=== PATIENT | female | born 1960 | race Caucasian/White ===

== ENCOUNTER 2017-01-09 23:33 | Inpatient (IN) | payer BC ==
[~2017-01-09] VITALS: Ht 170.2 cm; Wt 117.5 kg
[2017-01-09 23:48] VITALS: BP_SYST 206
[2017-01-10] VITALS (20 sets, daily range): BP systolic 108–174
--- NOTE | 2017-01-10 00:04 | NUR ---
Patient to ER bed 3 to gown for evaluation. Side rails up. Report given to OBED Bell.
--- NOTE | 2017-01-10 00:10 | NUR ---
Patient arrived to ED a/o x 4 with c/o generalized anxiety x 2 weeks. Patient states anxiety like symptoms have gradually increased prompting ED visit. Patient appears in acute distress. No increased work of breathing at this time. Patient states she becomes SOB upon talking. Upon assessment patient has HR of 117 and BP of 189/138. No hx of anxiety. Will continue to monitor.
--- NOTE | 2017-01-10 00:25 | NUR ---
ED MD Chilel at bedside for medical evaluation.
[2017-01-10] MEDS ORDERED: NACL 0.9% 1,000 ML IV ONE ×2 (00:45→03:30)
--- NOTE | 2017-01-10 00:57 | NUR ---
20 gauge angiocath placed to right AC. Use of asceptic technique. Opsite placed over site. Blood return noted. Blood for lab drawn from site. Flushed with 10 cc of normal saline. No evidence of infiltration noted. Patient tolerated well.
[2017-01-10] MEDS ORDERED: LORazepam 2 MG/ML VIAL (FOR ER USE) IVP ONE (01:00)
[2017-01-10] MEDS ORDERED: KETOROLAC TROMETHAMINE 30 MG VIAL IVP ONE (01:00)
[2017-01-10] MEDS ORDERED: ASPIRIN 81 MG TAB.CHEW PO ONE (01:00)
--- NOTE | 2017-01-10 01:07 | NUR ---
Medicated per MD orders. IVF infusing with no s/s of infiltration at this time.
--- NOTE | 2017-01-10 01:20 | NUR ---
Radiology at bedside.
[2017-01-10 01:25] LABS: BASOPHILS # (AUTO) 0.1 K/uL (0.0-0.2); BASOPHILS % (AUTO) 0.9 % (0.0-2.0); EOSINOPHILS % (AUTO) 0.1 % (0.0-4.0); HEMOGLOBIN 16.9 g/dL (12.0-16.0); LYMPHOCYTES # (AUTO) 0.9 K/uL (1.0-5.5); LYMPHOCYTES % (AUTO) 8.3 % (20.5-51.5); MEAN CORPUSCULAR HEMOGLOBIN 29 pg (27-31); MEAN CORPUSCULAR HGB CONC 33 % (32-36); MEAN CORPUSCULAR VOLUME 86 fL (79.0-98.0); MONOCYTES # (AUTO) 0.6 K/uL (0.0-1.0); MONOCYTES % (AUTO) 5.6 % (1.7-9.3); NEUTROPHILS # (AUTO) 9.2 K/uL (1.8-7.7); NEUTROPHILS % (AUTO) 85.1 % (40.0-70.0); PLATELET COUNT (AUTO) 324 K/uL (130-430); RED BLOOD CELL COUNT(AUTO) 5.91 MIL/uL (4.2-6.2); RED CELL DISTRIBUTION WIDTH 11.9 % (9.0-15.0); WHITE BLOOD COUNT (AUTO) 10.8 K/uL (4.8-10.8)
[2017-01-10] MEDS ORDERED: hydrALAZINE HCL 20 MG/ML VIAL IVP ONE ×2 (01:30→02:45)
[2017-01-10 01:34] LABS: ANION GAP 23 (5-15); CALCIUM 9.5 mg/dL (8.4-11.0); CHLORIDE 98 mmol/L (98-107); CREATININE 0.96 mg/dL (0.55-1.30); GLUCOSE 281 mg/dL (70-99); POTASSIUM 3.4 mmol/L (3.5-5.1); SODIUM SERUM 137 mmol/L (136-145); UREA NITROGEN, BLOOD 9 mg/dL (8-21)
--- NOTE | 2017-01-10 01:40 | NUR ---
Radiology at bedside for CXR.
[2017-01-10 01:45] LABS: ALANINE AMINOTRANSFERASE 184 U/L (12-78); ALBUMIN 4.3 g/dL (3.4-4.8); ASPARTATE AMINOTRANSFERASE 79 U/L (10-37); TOTAL BILIRUBIN 0.7 mg/dL (0.0-1.0)
--- NOTE | 2017-01-10 01:46 | NUR ---
Patient reports pain 0/10 30 minutes after administration of 30mg Tordal IVP. No adverse reactions noted. Will continue to monitor.
[2017-01-10 01:47] LABS: GFR AFRICAN AMERICAN 77 mL/min (>90)
[2017-01-10] MEDS ORDERED: IOHEXOL 350 mgI/mL, 150 ML INFUS..BTL IV ONE (02:05)
--- NOTE | 2017-01-10 02:05 | NUR ---
Patient transported off unit via wheelchair for CT of chest via radiology staff.
--- NOTE | 2017-01-10 02:31 | NUR ---
Pt moved to bed 1
--- NOTE | 2017-01-10 02:50 | NUR ---
RT at bedside for ABG draw.
[2017-01-10] MEDS ORDERED: INSULIN REGULAR, HUMAN 101.01 UNITS in NS 99 ML IV ONE ×4 (03:30→04:30)
--- NOTE | 2017-01-10 03:30 | NUR ---
rePatient resting quietly. No acute distress noted. Vital signs within normal range.
[2017-01-10] MEDS ORDERED: INSULIN REGULAR, HUMAN 100 UNITS/ML, 10 ML VIAL (novoLIN R) ONE (03:46)
[2017-01-10] MEDS ORDERED: METOPROLOL TARTRATE 5 MG/5 ML VIAL IVP ONE (04:00)
[2017-01-10] MEDS ORDERED: INSULIN REGULAR, HUMAN 10 UNITS/0.1 ML INJ ONE (04:09)
--- NOTE | 2017-01-10 04:10 | NUR ---
Insulin drip initiated per ED MD Chilel order. To start at 4 units/hour. Finger stick blood glucose upon initiation is 200.
--- NOTE | 2017-01-10 04:20 | NUR ---
ED MD Chilel at bedside reassessing patient.
[2017-01-10] MEDS ORDERED: POTASSIUM CHLORIDE 10 MEQ TAB.PRT.SR PO ONE (04:30)
[2017-01-10] MEDS ORDERED: NACL 0.9% 1,000 ML IV SCH (04:30)
[2017-01-10] MEDS ORDERED: ENALAPRILAT DIHYDRATE 1.25 MG/ML VIAL IVP PRN (04:30)
[2017-01-10] MEDS ORDERED: ACETAMINOPHEN 325 MG TABLET PO PRN (04:30)
[2017-01-10 04:40] LABS: BILIRUBIN,URINE NEGATIVE (NEGATIVE); BLOOD, URINE NEGATIVE (NEGATIVE); CLARITY/URINE CLEAR (CLEAR); COLOR,URINE YELLOW (YELLOW); GLUCOSE,URINE NEGATIVE (NEGATIVE); KETONES,URINE 3+ (NEGATIVE); LEUKOCYTE ESTERASE ,URINE NEGATIVE (NEGATIVE); NITRITE, URINE NEGATIVE (NEGATIVE); PH,URINE 5.5 (5.0-8.0); PROTEIN URINE NEGATIVE (NEGATIVE); UROBILINOGEN,URINE 0.2 (0.2-1.0)
--- NOTE | 2017-01-10 04:55 | NUR ---
Patient will be admitted to care of Dr. Barraza. Admitted to intensive care unit. Will go to bed 7. Belongings list completed. Summary report printed. Report will be given at bedside.
--- NOTE | 2017-01-10 05:25 | NUR ---
Called Dr. Conn's exchange for consult. Spoke to Carlo. Nurse is aware.
--- NOTE | 2017-01-10 07:25 | NUR ---
AM Assessment Pt AAOx4, ambulatory. Pt states no pain or discomfort at this time. Respirations even and unlabored on RA. Skin warm and dry. IV 20G in RAC intact, patent, no infiltration noted with NS 100 ml/hr. Heart sounds regular, SR on monitor, HR 80s. Lung sounds clear bilaterally. Bowel sounds present. Per report, pt is off insulin drip, BS 119. Bed in lowest position. Call light in reach. Will continue to monitor.
[2017-01-10] MEDS ORDERED: POTASSIUM CHLORIDE 20 MEQ in NACL 0.9% 1,000 ML IV SCH (07:30)
[2017-01-10] MEDS ORDERED: INSULIN REGULAR, HUMAN 101.01 UNITS in NS 99 ML IV PRN ×2 (07:45)
[2017-01-10] MEDS: PANTOPRAZOLE SODIUM 40 MG TAB PO SCH (08:19)
[2017-01-10 08:30] LABS: CALCIUM 8.7 mg/dL (8.4-11.0); CREATININE 0.83 mg/dL (0.55-1.30)
[2017-01-10 08:51] LABS: PHOSPHORUS 2.8 mg/dL (2.7-4.5)
[2017-01-10] MEDS: LISINOPRIL 10 MG TABLET (PRINIVIL) PO SCH (09:11)
[2017-01-10] MEDS ORDERED: MAGNESIUM SULFATE 50 ML IV ONE (09:30)
[2017-01-10] MEDS ORDERED: POTASSIUM CHLORIDE 20 MEQ TAB.PRT.SR PO ONE (09:30)
--- NOTE | 2017-01-10 09:30 | NUR ---
Dr. Conn called unit and made new orders. Noted and carried out.
[2017-01-10] MEDS: KCL 20 mEq in 0.45% NS 1000 mL 1,000 ML IV SCH ×2 (11:32→18:37)
--- NOTE | 2017-01-10 12:30 | NUR ---
MD VISIT: DR. KRISTIN FOSTER HERE TO SEE PATIENT, SPOKE WITH PATIENT AND FAMILY RE: PLAN OF CARE, WITH ORDERS CARRIED OUT.
--- NOTE | 2017-01-10 12:45 | NUR ---
consult for dr. woodard (dr. arora detonator maker) called spoke to tobi dialed [phone]
--- NOTE | 2017-01-10 13:15 | NUR ---
Dr. Conn in to see pt. New orders made, carried out.
[2017-01-10] MEDS: ALPRAZolam 0.25 MG TABLET PO SCH (13:30)
[2017-01-10] MEDS ORDERED: POTASSIUM CHLORIDE 20 MEQ/PKT PACKET PO ONE (13:30)
--- NOTE | 2017-01-10 14:50 | NUR ---
Patient Round Pt ambulate to toilet with steady gait and no assist. Had void and BM. BS checked every hour and insulin titrated per MD order.
[2017-01-10 15:42] LABS: CALCIUM 8.2 mg/dL (8.4-11.0); CREATININE 0.77 mg/dL (0.55-1.30); POTASSIUM 3.5 mmol/L (3.5-5.1)
[2017-01-10] MEDS: METOPROLOL TARTRATE 25 MG TABLET PO SCH ×2 (15:42→21:07)
[2017-01-10] MEDS ORDERED: METOPROLOL TARTRATE 25 MG TABLET ONE (15:50)
[2017-01-10 15:59] LABS: PHOSPHORUS 2.1 mg/dL (2.7-4.5); THYROID STIMULATING HORMONE 2.98 uIu/mL (0.36-3.74)
--- NOTE | 2017-01-10 17:50 | NUR ---
Dr. Conn called unit and give new orders including to stop insulin drip for pt's dinner and start insulin sliding scale after dinner. Noted and carried out.
[2017-01-10] MEDS ORDERED: INSULIN ASPART 100 UNITS/ML, 10 ML VIAL SUBCUT ONE (18:00)
--- NOTE | 2017-01-10 18:00 | NUR ---
Patient Update Pt states no pain or discomfort at this time. Stopped insulin drip per MD order and provided pt with dinner tray. Educated pt regarding insulin use and regimen per MD order. Pt states understanding and states, "I'll take the insulin now, but I don't want to go home with it." Pt also requests for more information from MD regarding regimen.
--- NOTE | 2017-01-10 19:20 | NUR ---
Closing/Endorsement Pt had 50%of dinner tray, pt states, "I don't want to eat all the food on there because it makes my sugar go up." Reeducated pt on insulin and diet regimen, pt states she "would like more information from the doctor." IV intact, patent, no infiltration noted. Endorsed plan of care to Goyo CLAY including pt concerns and need for reeducation.
--- NOTE | 2017-01-10 20:00 | NUR ---
AAOX4. IN NO APPARENT DISTRESS. VSS. DENIES PAIN. ON ROOM AIR. BREATH SOUNDS ESSENTIALLY CLEAR. POX 97%. BOWEL SOUNDS (+). STILL WORKING ON DINNER. PULSES PALPABLE. SKIN W/D. COLOR SATISFACTORY. HOB UP TO COMFORT. SIDE RAILS UP X2. CALL LIGHTS WITHIN REACH. SR. AT BEDSIDE VISITING.
--- NOTE | 2017-01-10 21:00 | NUR ---
ACCU-CHEK 138, NO INSULIN DUE PER SLIDING COV. FINISHED DINNER, ATE 50%. PLEASANT. WATCHING TV. QUESTIONS BY ANSWERED .
[2017-01-10] MEDS: INSULIN ASPART 100 UNITS/ML, 10 ML VIAL (NovoLOG) SUBCUT PRN (21:15)
--- NOTE | 2017-01-10 23:00 | NUR ---
OOB, AMBULATED TO COMMODE, 600CC CLEAR HEBER URINE MICTURATED. SELF HEATHER-CSRE DONE. BRUSHED TEETH WITH TOOTHBRUSH AND TOOTHPASTE IN SINK. AMBULATED BACK TO BED WITHOUT INCIDENCE.
[2017-01-11] VITALS (14 sets, daily range): BP systolic 94–184
--- NOTE | 2017-01-11 | NUR ---
DOZES ON AND OFF. VSS. DENIES PAIN, DISTRESS, SOB. LEFT FOR HOME EARLIER.
--- NOTE | 2017-01-11 03:00 | NUR ---
SOUNDLY ASLEEP. LOOKS COMFORTABLE. HOB HIGH FOWLERS. SINUS BRADYCARDIA. ASYMPTOMATIC.
[2017-01-11] MEDS: KCL 20 mEq in 0.45% NS 1000 mL 1,000 ML IV SCH (03:12)
--- NOTE | 2017-01-11 04:00 | NUR ---
SLEPT INTERMITTENTLY. VSS. DENIES DISTRESS. CONVERSANT.
--- NOTE | 2017-01-11 05:00 | NUR ---
CHG BATH TO SELF WITH MINIMUM ASSIST. LENO WELL.
--- NOTE | 2017-01-11 06:00 | NUR ---
ACCU-CHEK 100, NO INSULIN DUE PER SLIDING SCALE COV. DENIES PAIN, DISTRESS,SOB. REMAINS IN GUARDED CONDITION.
[2017-01-11] MEDS: INSULIN ASPART 100 UNITS/ML, 10 ML VIAL (NovoLOG) SUBCUT PRN ×2 (06:26→17:04)
[2017-01-11 06:44] LABS: BASOPHILS % (AUTO) 0.8 % (0.0-2.0); EOSINOPHILS # (AUTO) 0.2 K/uL (0.0-0.4); HEMATOCRIT 42.5 % (36-48); HEMOGLOBIN 14.1 g/dL (12.0-16.0); LYMPHOCYTES # (AUTO) 1.6 K/uL (1.0-5.5); LYMPHOCYTES % (AUTO) 27.5 % (20.5-51.5); MEAN CORPUSCULAR HEMOGLOBIN 29 pg (27-31); MEAN CORPUSCULAR HGB CONC 33 % (32-36); MEAN CORPUSCULAR VOLUME 87 fL (79.0-98.0); MONOCYTES # (AUTO) 0.5 K/uL (0.0-1.0); NEUTROPHILS # (AUTO) 3.4 K/uL (1.8-7.7); NEUTROPHILS % (AUTO) 58.7 % (40.0-70.0); PLATELET COUNT (AUTO) 287 K/uL (130-430); RED BLOOD CELL COUNT(AUTO) 4.89 MIL/uL (4.2-6.2); RED CELL DISTRIBUTION WIDTH 12.2 % (9.0-15.0); WHITE BLOOD COUNT (AUTO) 5.7 K/uL (4.8-10.8)
[2017-01-11 06:59] LABS: ALBUMIN 2.9 g/dL (3.4-4.8); CALCIUM 8.5 mg/dL (8.4-11.0); CREATININE 0.82 mg/dL (0.55-1.30); POTASSIUM 3.7 mmol/L (3.5-5.1); TOTAL BILIRUBIN 0.7 mg/dL (0.0-1.0)
--- NOTE | 2017-01-11 07:30 | NUR ---
OPENING NOTE: RECEIVED REPORT FROM OEBD MENDOZA. SALES PROMOTION DIRECTOR. PATIENT IS RESTING COMFORTABLY IN BED. NO S/S OF DISTRESS OR SOB. PATIENT IS ALERT AND ORIENTED, ABLE TO EXPRESS NEEDS, AND ASK FOR ASSISTANCE. VITAL SIGNS WNL. IV IS PATENT AND INFUSING. PATIENT RECEIVED BREAKFAST. NO NEEDS AT THIS TIME. CALL LIGHT IN REACH, BED IN LOWEST POSITION, AND WILL CONTINUE TO MONITOR.
--- NOTE | 2017-01-11 08:00 | NUR ---
Patient Round Pt states no pain or discomfort at this time. Pt's blood sugar 129, started on insulin drip 1 unit/hr per MD order. Will continue to monitor.
[2017-01-11] MEDS: ASPIRIN 81 MG TAB.CHEW PO SCH (08:58)
[2017-01-11] MEDS: FAMOTIDINE 20 MG TABLET PO SCH (08:59)
[2017-01-11] MEDS: PANTOPRAZOLE SODIUM 40 MG TAB PO SCH (08:59)
[2017-01-11] MEDS: LISINOPRIL 10 MG TABLET (PRINIVIL) PO SCH (08:59)
[2017-01-11] MEDS: METOPROLOL TARTRATE 50 MG TABLET PO SCH ×2 (09:00→20:42)
--- NOTE | 2017-01-11 10:54 | NUR ---
TRANSFER PATIENT WILL BE TRANSFERRED TO TELEMETRY BED 106B. REPORT WILL BE GIVEN TO NURSE, RIKI, AT BEDSIDE. PATIENT BEING TRANSFERRED IN STABLE CONDITION. BELONGINGS CHECKED AND SENT WITH PATIENT.
--- NOTE | 2017-01-11 11:29 | NUR ---
Admission from ICU: Patient awake, alert and oriented. Ambulatory. Stable. Skin intact. Call light within reach. Report received at bedside.
--- NOTE | 2017-01-11 14:21 | NUR ---
rounds: patient talking to sister at bedside. no distress noted.
--- NOTE | 2017-01-11 14:21 | NUR ---
Kenny rounds: Dr. Conn seen and talk to pt.
[2017-01-11] MEDS: ALPRAZolam 0.25 MG TABLET PO SCH ×2 (15:10→23:34)
--- NOTE | 2017-01-11 15:12 | NUR ---
Anxiety: patient having anxiety when she learned she will do the accu check by herself and will give education. Xanax given to calm her.
[2017-01-11] MEDS ORDERED: cloNIDine HCL 0.1 MG TABLET PO PRN (17:00)
[2017-01-11] MEDS ORDERED: LISINOPRIL 10 MG TABLET (PRINIVIL) PO ONE (17:00)
--- NOTE | 2017-01-11 17:08 | NUR ---
Education: Patient explained the procedure of doing accu check and giving herself insulin shot and she's able to do it. Verbalized understanding.
--- NOTE | 2017-01-11 18:50 | NUR ---
Flu Vac: Patient refused. "She doesn't not want it."
--- NOTE | 2017-01-11 18:51 | NUR ---
Closing notes: Patient on bed. Stable. Needs attended. at bedside. Call light within reach. Report will be given to overnight associate.
--- NOTE | 2017-01-11 19:05 | NUR ---
Initial Notes Received patient in bed awake,alert,oriented x4 with at bedside. No s/s of any distress noted. IV noted to R a/c no infiltrate and with good blood return. All extremities are strong,BRP. Discussed plan of care with patient and verbalized understanding. Placed call light in reach, will continue to monitor.
--- NOTE | 2017-01-11 21:05 | NUR ---
Rounds Patient is resting with family at bedside. Patient and expressed concern about her high blood pressure. Administer Lopressor and explain to patient that If scheduled and PRN medication wont work, will call MD. Patient and family verbalized understanding. Patient is newly diagnosed Diabetic and appear to be overwhelmed trying to learn to monitor blood glucose and to self administer insulin. Will cont to monitor.
--- NOTE | 2017-01-11 23:05 | NUR ---
Rounds Patient is resting at this time with family at bedside. No s/s of pain or any distress noted. Call light in reach, will cont to monitor.
[2017-01-12 00:07] VITALS: BP_SYST 157
--- NOTE | 2017-01-12 01:05 | NUR ---
Rounds Assisted to b/r and safely back to bed. No s/s of any distress noted. Call light in reach, will cont to monitor.
--- NOTE | 2017-01-12 03:05 | NUR ---
Rounds Patient is resting comfortably in bed. No s/s of pain or any distress noted. Call light in reach, will cont to monitor.
[2017-01-12 03:40] VITALS: BP_SYST 150
--- NOTE | 2017-01-12 06:51 | NUR ---
Final Notes Patient is awake in bed at this time. No s/s of pain or any distress noted. Educated patient about blood glucose monitor, Insulin administration, and hypoglycemic condition. Patient needs more demonstration. All needs met and anticipated by nurses. Call light in reach, will endorsed.
[2017-01-12 07:12] LABS: BASOPHILS % (AUTO) 0.8 % (0.0-2.0); EOSINOPHILS # (AUTO) 0.3 K/uL (0.0-0.4); EOSINOPHILS % (AUTO) 4.3 % (0.0-4.0); HEMATOCRIT 46.1 % (36-48); HEMOGLOBIN 15.2 g/dL (12.0-16.0); LYMPHOCYTES # (AUTO) 1.6 K/uL (1.0-5.5); LYMPHOCYTES % (AUTO) 26.4 % (20.5-51.5); MEAN CORPUSCULAR HEMOGLOBIN 29 pg (27-31); MEAN CORPUSCULAR HGB CONC 33 % (32-36); MEAN CORPUSCULAR VOLUME 87 fL (79.0-98.0); MONOCYTES # (AUTO) 0.5 K/uL (0.0-1.0); MONOCYTES % (AUTO) 8.6 % (1.7-9.3); NEUTROPHILS # (AUTO) 3.5 K/uL (1.8-7.7); NEUTROPHILS % (AUTO) 59.9 % (40.0-70.0); PLATELET COUNT (AUTO) 269 K/uL (130-430); RED CELL DISTRIBUTION WIDTH 12.1 % (9.0-15.0); WHITE BLOOD COUNT (AUTO) 5.9 K/uL (4.8-10.8)
[2017-01-12 07:49] LABS: ALBUMIN 3.1 g/dL (3.4-4.8); CREATININE 0.67 mg/dL (0.55-1.30); POTASSIUM 3.4 mmol/L (3.5-5.1); TOTAL BILIRUBIN 0.6 mg/dL (0.0-1.0)
[2017-01-12 07:50] VITALS: BP_SYST 178
--- NOTE | 2017-01-12 07:50 | NUR ---
OPENING NOTE RECEIVED PATIENT REPORT FROM SOLE MOLDER NURSE. PATIENT RESTING COMFORTABLY, NO COMPLAINTS OF PAIN AT THIS TIME. NO NOTABLE SIGNS OF DISTRESS AT THIS TIME. PATIENT IV SALINE LOCKED PER MD ORDERS. PATIENT BED IN LOWEST POSITION, CALL LIGHT WITHIN REACH, AND SIDE RAILS ARE UP FOR SAFETY MEASURES. WILL CONTINUE TO MONITOR PATIENT FOR CHANGES IN STATUS.
[2017-01-12] MEDS ORDERED: LISINOPRIL 20 MG TABLET PO SCH (09:00)
[2017-01-12] MEDS ORDERED: POTASSIUM CHLORIDE 20 MEQ TAB.PRT.SR PO ONE (09:00)
[2017-01-12] MEDS: ASPIRIN 81 MG TAB.CHEW PO SCH (09:13)
[2017-01-12] MEDS: FAMOTIDINE 20 MG TABLET PO SCH (09:14)
[2017-01-12] MEDS: PANTOPRAZOLE SODIUM 40 MG TAB PO SCH (09:14)
[2017-01-12] MEDS: METOPROLOL TARTRATE 50 MG TABLET PO SCH (09:17)
--- NOTE | 2017-01-12 10:04 | NUR ---
1000 NOTE PATIENT RESTING COMFORTABLY, NO COMPLAINTS OF PAIN AT THIS TIME. PATIENTS IS AT BEDSIDE. NO NOTABLE SIGNS OF DISTRESS AT THIS TIME. PATIENT IV SALINE LOCKED PER MD ORDERS. PATIENT BED IN LOWEST POSITION, CALL LIGHT WITHIN REACH, AND SIDE RAILS ARE UP FOR SAFETY MEASURES. WILL CONTINUE TO MONITOR PATIENT FOR CHANGES IN STATUS.
[2017-01-12 10:18] VITALS: BP_SYST 170
[2017-01-12] MEDS ORDERED: ALPR0.5T96 PO (11:07)
[2017-01-12] MEDS ORDERED: LISI-600 PO (11:08)
[2017-01-12] MEDS ORDERED: METO-442 PO (11:09)
[2017-01-12] MEDS ORDERED: ASA81 PO (11:09)
--- NOTE | 2017-01-12 11:50 | NUR ---
NOTE PATIENT BLOOD SUGAR OF 157. PATIENT REFUSED INSULIN PRIOR TO DISCHARGE. PATIENT EDUCATED ON RECHECKING BLOOD SUGAR 30 MINUTES PRIOR TO EATING, ADMINISTERING INSULIN BASED ON BLOOD SUGAR THEN. EAT WITHIN 30 MINUTES OF INSULIN ADMINISTRATION. PATIENT AND SPOUSE AGREE, AND VERBALIZED UNDERSTANDING.
--- NOTE | 2017-01-12 11:55 | NUR ---
D/C Patient Patient given medication reconciliation form and D/C instructions. Exit Care provided. Patient and spouse verbalized understanding. MD discussed with patient the results and treatment provided. Ambulatory with steady gait for discharge to home. Patient in stable condition, ID band removed. IV catheter removed, intact and dressing applied, no active bleeding. Rx of Xanax, Lisinopril, Metoprolol, and Low Dose Aspirin given. Patient educated on diabetes management, and follow up instructions with Dr. Puente and Dr. Conn, phone numbers given. Dr. Barraza would like to see patient in office, phone number provided as well. All belongings sent with patient.
== END 2017-01-12 11:55 | disposition home or self-care (01) | DRG 638 ==
LOC: SED 23:33 → SIC 01-10 04:37 → STU 01-11 11:36
PROVIDERS: ADMIT Internal Medicine; ATTEND Internal Medicine
DX: E13.10 Other specified diabetes mellitus with ketoacidosis without coma (principal); Z68.41 Body mass index [BMI] 40.0-44.9, adult; K76.0 Fatty (change of) liver, not elsewhere classified; E83.42 Hypomagnesemia; I10 Essential (primary) hypertension; E66.09 Other obesity due to excess calories; F41.9 Anxiety disorder, unspecified; E87.6 Hypokalemia; R94.31 Abnormal electrocardiogram [ECG] [EKG]; Z82.49 Family history of ischemic heart disease and other diseases of the circulatory system
CPT/HCPCS: 36415; 36600; 71010; 71275; 80048; 80053; 80061; 81003; 82009-TC; 82803-TC; 82962; 83036; 83735-TC; 84100-TC; 84443-TC; 84484; 85025; 87040-TC; 87081; 93005; 93306; J0360; J1815; J1885; J2060; J3475; J3480; J3490; J7030; Q9967

== ENCOUNTER 2017-01-14 20:02 | Emergency (ER) | payer BC ==
[~2017-01-14] VITALS: Ht 170.2 cm; Wt 112.0 kg
[~2017-01-14 20:02] MED LIST: ALPR0.5T96 PO; ASA81 PO; LISI-600 PO; METO-442 PO
[2017-01-14 20:18] VITALS: BP_SYST 203
--- NOTE | 2017-01-14 21:02 | NUR ---
Patient to ER bed 2 to gown for evaluation. Side rails up. Report given to OBED YEE.
[2017-01-14 21:03] LABS: BASOPHILS % (AUTO) 0.6 % (0.0-2.0); EOSINOPHILS # (AUTO) 0.1 K/uL (0.0-0.4); EOSINOPHILS % (AUTO) 0.9 % (0.0-4.0); HEMATOCRIT 48.3 % (36-48); HEMOGLOBIN 15.6 g/dL (12.0-16.0); LYMPHOCYTES # (AUTO) 1.4 K/uL (1.0-5.5); LYMPHOCYTES % (AUTO) 16.4 % (20.5-51.5); MEAN CORPUSCULAR HEMOGLOBIN 28 pg (27-31); MEAN CORPUSCULAR HGB CONC 32 % (32-36); MEAN CORPUSCULAR VOLUME 88 fL (79.0-98.0); MONOCYTES # (AUTO) 0.4 K/uL (0.0-1.0); MONOCYTES % (AUTO) 4.9 % (1.7-9.3); NEUTROPHILS # (AUTO) 6.4 K/uL (1.8-7.7); NEUTROPHILS % (AUTO) 77.2 % (40.0-70.0); PLATELET COUNT (AUTO) 288 K/uL (130-430); RED CELL DISTRIBUTION WIDTH 12.3 % (9.0-15.0); WHITE BLOOD COUNT (AUTO) 8.3 K/uL (4.8-10.8)
--- NOTE | 2017-01-14 21:10 | NUR ---
Patient AOx4, ambulatory, presents to ER with complaint of high blood pressure. Patient states that she was recently prescribed Lisinopril and Metoprolol but they are ineffective. Blood pressure currently 187/111. No acute distress noted at this time.
--- NOTE | 2017-01-14 21:23 | NUR ---
ER MD Mathews at bedside for medical evaluation.
[2017-01-14 21:26] LABS: CALCIUM 9.5 mg/dL (8.4-11.0); CREATININE 0.65 mg/dL (0.55-1.30); POTASSIUM 3.7 mmol/L (3.5-5.1)
[2017-01-14] MEDS ORDERED: cloNIDine HCL 0.1 MG TABLET PO ONE (21:30)
[2017-01-14 21:42] LABS: ALBUMIN 3.6 g/dL (3.4-4.8); THYROID STIMULATING HORMONE 2.83 uIu/mL (0.34-4.82); TOTAL BILIRUBIN 0.5 mg/dL (0.0-1.0)
[2017-01-14 21:52] LABS: BILIRUBIN,URINE 1+ (NEGATIVE); BLOOD, URINE TRACE (NEGATIVE); CLARITY/URINE SL HAZY (CLEAR); COLOR,URINE YELLOW (YELLOW); GLUCOSE,URINE NEGATIVE (NEGATIVE); KETONES,URINE 2+ (NEGATIVE); LEUKOCYTE ESTERASE ,URINE NEGATIVE (NEGATIVE); NITRITE, URINE NEGATIVE (NEGATIVE); PROTEIN URINE TRACE (NEGATIVE); UROBILINOGEN,URINE 0.2 (0.2-1.0)
[2017-01-14 22:02] LABS: BACTERIA,URINE MODERATE /HPF (None Seen); MUCUS,URINE 2+ /LPF (None Seen); RBC,URINE 0-3 /HPF (0-3)
--- NOTE | 2017-01-14 22:15 | NUR ---
No adverse reactions noted after medication administration. Will continue to monitor.
[2017-01-14] MEDS ORDERED: hydrALAZINE HCL 25 MG TABLET PO ONE (22:30)
[2017-01-14] MEDS ORDERED: hydrALAZINE HCL 25 MG TABLET ONE (22:54)
[2017-01-14 23:08] VITALS: BP_SYST 141
--- NOTE | 2017-01-14 23:08 | NUR ---
Patient given written and verbal discharge instructions and verbalizes understanding. ER MD discussed with patient the results and treatment provided. Patient in stable condition. ID arm band removed. Rx of Clonidine given. Patient educated on pain management and to follow up with PMD. Pain Scale 0/10. Opportunity for questions provided and answered.
== END 2017-01-14 23:08 | disposition home or self-care (01) ==
LOC: SED 20:02
DX: I10 Essential (primary) hypertension (principal); F41.9 Anxiety disorder, unspecified; E11.9 Type 2 diabetes mellitus without complications
CPT/HCPCS: 36415; 80053; 81000-TC; 82962; 84443-TC; 85025; 87086; 93005; 99285

== ENCOUNTER 2017-01-15 17:14 | Emergency (ER) | payer BC ==
[~2017-01-15] VITALS: Ht 170.2 cm; Wt 112.0 kg
[2017-01-15 17:15] VITALS: BP_SYST 173
--- NOTE | 2017-01-15 17:15 | NUR ---
BROUGHT BACK TO BED #8 AND TRIAGED, REPORT GIVEN TO KIERAN
--- NOTE | 2017-01-15 17:20 | NUR ---
Pt brought by family, A&Ox4, pt c/o hypertension since yesterday, denies pain, BP 173/89 at this time, cap refill <3, VS WNL, skin pink and warm, respirations even and unlabored,ambulatory.
--- NOTE | 2017-01-15 17:20 | NUR ---
Dr Oliveros at bedside examining patient
[2017-01-15 17:36] VITALS: BP_SYST 146
--- NOTE | 2017-01-15 17:53 | NUR ---
Patient given written and verbal discharge instructions and verbalizes understanding. ER MD discussed with patient the results and treatment provided. Patient in stable condition. ID arm band removed. Rx of Amlodipine given. Patient educated on pain management and to follow up with PMD. Pain Scale 0/10 Opportunity for questions provided and answered.
== END 2017-01-15 17:36 | disposition home or self-care (01) ==
LOC: SED 17:14
DX: I10 Essential (primary) hypertension (principal); F41.9 Anxiety disorder, unspecified; E11.9 Type 2 diabetes mellitus without complications
CPT/HCPCS: 99283